=== PATIENT | male | born 1950 | race Caucasian/White ===

== ENCOUNTER 2018-10-14 13:06 | Outpatient (CLI) | payer OTHER | END 2018-10-14 13:25 | disposition home or self-care (01) | LOC: MAMO-SONO 13:06 | DX: R31.0 Gross hematuria (principal) ==

== ENCOUNTER 2021-02-26 09:00 | Outpatient (CLI) | payer OTHER | END 2021-02-26 15:01 | disposition home or self-care (01) | LOC: PPH VACUNA 09:00 | PROVIDERS: ATTEND Emergency Medicine Pediatric Emergency Medicine | DX: Z23 Encounter for immunization (principal) ==

== ENCOUNTER 2021-10-23 12:00 | Outpatient (CLI) | payer OTHER | END 2021-10-23 12:10 | disposition home or self-care (01) | LOC: PPH VACUNA 12:00 | PROVIDERS: ATTEND Emergency Medicine Pediatric Emergency Medicine | DX: Z23 Encounter for immunization (principal) ==

== ENCOUNTER 2022-06-30 | Outpatient (CLI) | payer OTHER | END 2022-06-30 00:15 | disposition home or self-care (01) | LOC: PPH VACUNA | PROVIDERS: ATTEND Emergency Medicine Pediatric Emergency Medicine | DX: Z23 Encounter for immunization (principal) ==

== ENCOUNTER 2024-07-14 10:45 | Outpatient (CLI) | payer OTHER | END 2024-07-14 10:53 | disposition home or self-care (01) | LOC: RAD 10:45 | PROVIDERS: ATTEND Family Medicine | DX: M54.2 Cervicalgia (principal) ==

== ENCOUNTER 2024-07-22 10:55 | Outpatient (CLI) | payer OTHER | END 2024-07-22 10:56 | disposition home or self-care (01) | LOC: MRI 10:55 | PROVIDERS: ATTEND Anesthesiology | DX: M96.1 Postlaminectomy syndrome, not elsewhere classified (principal); M47.812 Spondylosis without myelopathy or radiculopathy, cervical region | CPT/HCPCS: 72141 ==

== ENCOUNTER 2025-04-24 08:22 | Outpatient (CLI) | payer OTHER | END 2025-04-24 08:35 | disposition home or self-care (01) | LOC: RAD 08:22 | PROVIDERS: ATTEND Internal Medicine | DX: G31.84 Mild cognitive impairment of uncertain or unknown etiology (principal); K56.609 Unspecified intestinal obstruction, unspecified as to partial versus complete obstruction; Z12.11 Encounter for screening for malignant neoplasm of colon | CPT/HCPCS: 70551 ==